=== PATIENT | male | born 1990 | race African-American/Black ===

== ENCOUNTER 2020-05-09 11:41 | Emergency (ER) | payer SELFPAY ==
[2020-05-09 11:51] VITALS: BP 153/98; PULSE 89; RESP 16; TEMP 36.6; O2SAT 100
--- NOTE | 2020-05-09 11:56 | ED.DENTAL ---
HPI - Dental/Oral General Chief complaint: Dental/Oral Stated complaint: dental abscess Time Seen by Provider: 05/09/20 11:56 Source: patient Mode of arrival: ambulatory Limitations: no limitations History of Present Illness HPI Narrative: Hugh Moore is a 29 yo male with no PMH who comes to express care with possible dental abscess on left lower wisdom tooth(17)-states started 3 days ago and has been unable to to and swelling and tenderness on the lower back teeth Related Data Allergies Allergy/AdvReac Type Severity Reaction Status Date / Time No Known Allergies Allergy Verified 05/09/20 11:50 Review of Systems Review of Systems: Narrative: CONSTITUTIONAL: Denies fever, chills, sweats. EYES: Denies visual changes, redness, discharge. ENT: Denies rhinorrhea, congestion, sore throat, otalgia. Right lower tooth pain CARDIOVASCULAR: Denies chest pain, palpitations, edema. RESPIRATORY: Denies dyspnea, wheezing, cough GASTROINTESTINAL: Denies abdominal pain, nausea, vomiting, diarrhea. GENITOURINARY: Denies dysuria, hematuria, abnormal discharge SKIN: Denies rash or itching. NEUROLOGIC: Denies numbness, or focal weakness. PSYCHIATRIC: Denies anxiety or depression. PMFSH Past Medical History Medical History No acute medical problems Family History Family History Other No acute medical problems Social History Social History (Updated 05/09/20 @ 12:05 by Cira Stanton CNP) Smoking packs per day: 1 Smoking cigarettes per day: 20.0 Smoking status: Current every day smoker Alcohol intake: current Comments At time of signature, I agree with nursing past medical, surgical, social and family history. There is no relevant family history pertinent to the presenting complaint. Patient has elevated blood pressure, is follow-up with PCP Exam Narrative: Exam Narrative: GENERAL: This is a well-nourished, well-developed patient, in moderate distress. HEAD: normocephalic, atraumatic. EYES: Sclera clear/white. Vision is grossly intact. EARS: External ears normal, Hearing grossly intact. NOSE: External nose normal without nasal discharge, nares without redness, no rhinorrhea. THROAT: Mucous membranes moist, posterior pharynx pink- L lower molar (17) - tissue red and swollen, tender to touch, submandibular tenderness NECK: Neck supple, non-tender CARDIOVASCULAR: Regular rate and rhythm without murmurs, gallops, or rubs. RESPIRATORY: Clear to auscultation. Breath sounds equal bilaterally. No wheezes, rales, or rhonchi. GASTROINTESTINAL: Abdomen soft, SKIN: warm, intact with no suspicious lesions or rash, good texture and turgor. NEURO: awake, alert, and oriented to person, place and time. There were no obvious focal neurologic abnormalities. Steady gait EXTREMITIES: Normal range of motion. BACK: Nontender without deformity Course Course Emergency Course: Patient came to express care for dental pain the left lower molar Started on antibiotics and pain medications with follow-up list given for dentist Vital Signs Vital signs: Vital Signs Temperature 97.8 F 05/09/20 11:51 Pulse Rate 89 05/09/20 11:51 Respiratory Rate 16 05/09/20 11:51 Blood Pressure 153/98 H 05/09/20 11:51 Pulse Oximetry 100 05/09/20 11:51 Temperature 97.8 F 05/09/20 11:51 Pulse Rate 89 05/09/20 11:51 Respiratory Rate 16 05/09/20 11:51 Blood Pressure 153/98 H 05/09/20 11:51 Pulse Oximetry 100 05/09/20 11:51 MDM - Dental/Oral Differential Diagnosis Differential diagnosis: Likely gingival abscess, dental caries, dental abscess and other Discharge Plan Discharge Clinical Impression: Dental abscess Patient Disposition: Home, Self-Care Condition: Stable Instructions: Antibiotic Form, Dental Abscess (ED) Additional Instructions: Swish salt water mouth 3 times a day and follow-up
== END 2020-05-09 12:17 | disposition home or self-care (01) ==
PROVIDERS: Emergency Provider Nurse Practitioner
DX: K04.7 Periapical abscess without sinus (principal); F17.200 Nicotine dependence, unspecified, uncomplicated
CPT/HCPCS: 99203; G0463